=== PATIENT | male | born 1955 | race Caucasian/White ===

== ENCOUNTER 2016-04-24 00:54 | Emergency (ER) | payer OTHER ==
[~2016-04-24] VITALS: Ht 170.2 cm; Wt 78.0 kg
[~2016-04-24 00:54] MED LIST: AMLODIPINE BESY10 MG PO; LISINOPRIL40 MG PO; NAPROSYN500 MG PO
[2016-04-24 01:39] LABS: ADD MIUA? NO; BILIRUBIN NEGATIVE; BLOOD NEGATIVE; COLOR YELLOW ((YELLOW)); GLUCOSE (STRIP) NEGATIVE; KETONES NEGATIVE; LEUKOCYTES NEGATIVE; NITRITE NEGATIVE; PH, URINE 5.5 (5-8); PROTEIN (STRIP) NEGATIVE; SPECIFIC GRAVITY 1.034 (1.000-1.030); UCUL ADDED? NO; UROBILINOGEN 0.2 MG/DL (0.2-1.0)
[2016-04-24 01:47] LABS: HEMATOCRIT 43.4 % (38.0-50.0); MCH 28.5 PG (29.0-34.0); MCHC 33.4 G/DL (30.0-36.0); MCV 85.4 FL (86-99); MEAN PLAT.VOLUME 11.4 uM^3 (9.0-12.4); PLATELET COUNT 271 K/uL (156-360); RBC DIS.WIDTH-CV 13.4 % (11.8-14.6); RBC DIS.WIDTH-SD 41.3 % (39-53); RED BLOOD COUNT 5.08 M/uL (4.00-5.50); WHITE BLOOD COUNT 8.7 K/uL (4.1-10.2)
[2016-04-24 02:00] LABS: CHLORIDE 103 mEq/L (99-109); POTASSIUM 4.2 mEq/L (3.7-5.4); SODIUM 140 mEq/L (136-147)
[2016-04-24 02:02] LABS: GLUCOSE 121 mg/dL (70-99)
[2016-04-24 02:03] LABS: ANION GAP 10 MEQ/L (2-14)
[2016-04-24 02:04] LABS: TOTAL BILIRUBIN 0.4 mg/dL (0.0-1.0)
[2016-04-24 02:05] LABS: ALKALINE PHOSPHATASE 68 IU/L (3-129)
[2016-04-24 02:06] LABS: GFR ESTIMATE (CALCULATED) > 59 mL/min/
[2016-04-24 02:09] LABS: LIPASE 46 U/L (1.0-51.0)
[2016-04-24 02:14] LABS: UREA NITROGEN (BUN) 22 mg/dL (9-23)
[2016-04-24] MEDS ORDERED: KEFLEX500 MG PO (03:11)
[2016-04-24] MEDS ORDERED: NORCO 5/3251 TABLET PO (03:12)
[2016-04-24] MEDS ORDERED: MOTRIN600 MG PO (03:12)
[2016-04-24 03:41] VITALS: BP 174/92
== END 2016-04-24 03:41 | disposition home or self-care (01) ==
LOC: EME 00:54
DX: R59.0 Localized enlarged lymph nodes (principal); L73.9 Follicular disorder, unspecified; I10 Essential (primary) hypertension
CPT/HCPCS: 74176; 80053; 81003; 83690; 85027; 99281; 99283; J1885

== ENCOUNTER → 2016-06-01 | Outpatient (CLI) | payer MEDICARE, OTHER ==
[~2016-06-01] MED LIST changes: +COLACE100 MG PO; +HYDROCODON-ACE1 EAC7 PO; +KEFLEX500 MG PO; +MOTRIN600 MG PO; +NERVE PILL PO; +NORCO 5/3251 TABLET PO; +NORVASC10 MG PO; +TRAZODONE HCL50 MG PO; +TRIFLUOPERAZINE2 MG PO
== END | disposition home or self-care (01) ==
LOC: CDC 08:47
DX: Z01.810 Encounter for preprocedural cardiovascular examination (principal); K40.90 Unilateral inguinal hernia, without obstruction or gangrene, not specified as recurrent
CPT/HCPCS: 93000

== ENCOUNTER 2016-06-20 07:01 | Day surgery (SDC) | payer OTHER ==
[~2016-06-20] VITALS: Ht 170.2 cm; Wt 75.0 kg
[~2016-06-20 07:01] MED LIST changes: -COLACE100 MG PO; -TRIFLUOPERAZINE2 MG PO
[2016-06-20] MEDS ORDERED: TRIFLUOPERAZINE2 MG PO (07:54)
[2016-06-20 08:00] VITALS: BP 136/68
[2016-06-20] MEDS ORDERED: COLACE100 MG PO (12:20)
[2016-06-20] MEDS ORDERED: NORCO 5/3251 TABLET PO (12:20)
[2016-06-20 14:18] VITALS: BP 154/87
[2016-06-20 15:18] VITALS: BP 143/81
== END 2016-06-20 15:25 | disposition home or self-care (01) ==
LOC: SDC 07:01
PROC: 0YUA4JZ Supplement Bilateral Inguinal Region with Synthetic Substitute, Percutaneous Endoscopic Approach (ICD-10-PCS; principal; 2016-06-20)
DX: K40.20 Bilateral inguinal hernia, without obstruction or gangrene, not specified as recurrent (principal); I10 Essential (primary) hypertension; Z87.891 Personal history of nicotine dependence
CPT/HCPCS: C1727; C1781; J0330; J0690; J1170; J1885; J2250; J2405; J3010

== ENCOUNTER 2017-02-22 07:13 | Emergency (ER) | payer OTHER ==
[~2017-02-22] VITALS: Ht 170.2 cm; Wt 75.1 kg
[~2017-02-22 07:13] MED LIST changes: +COLACE100 MG PO; +TRIFLUOPERAZINE2 MG PO
[2017-02-22 07:53] LABS: BASOPHIL COUNT 0.1 K/uL (0-0.1); EOSINOPHIL (%) 1.5 % (0-5); EOSINOPHIL COUNT 0.1 K/uL (0-0.3); HEMATOCRIT 45.3 % (38.0-50.0); IMMATURE GRANULOCYTE (%) 0.3 % (0.0-0.7); INSTRUMENT ABS NEUTROPHIL CT 6.4 K/uL; LYMPHOCYTE COUNT 1.7 K/uL (1.0-2.8); MCH 28.1 PG (29.0-34.0); MCHC 33.3 G/DL (30.0-36.0); MCV 84.2 FL (86-99); MEAN PLAT.VOLUME 10.6 uM^3 (9.0-12.4); MONOCYTE (%) 10.7 % (3-12); NEUTROPHIL (%) 68.6 % (45-76); NEUTROPHIL COUNT 6.4 K/uL (1.8-6.4); PLATELET COUNT 285 K/uL (156-360); RBC DIS.WIDTH-SD 39.8 % (39-53); RED BLOOD COUNT 5.38 M/uL (4.00-5.50); WHITE BLOOD COUNT 9.3 K/uL (4.1-10.2)
[2017-02-22 07:59] LABS: INTER. NORMALIZED RATIO 1.2; PROTHROMBIN TIME 13.5 SEC (10.2-12.9)
[2017-02-22 08:29] LABS: TROP-I INTERPRETATION NEGATIVE; TROPONIN-I 0.02 ng/mL (0.0-0.30)
[2017-02-22 08:42] LABS: CHLORIDE 104 mEq/L (99-109); POTASSIUM 4.5 mEq/L (3.7-5.4); SODIUM 136 mEq/L (136-147)
[2017-02-22 08:44] LABS: GLUCOSE 132 mg/dL (70-99)
[2017-02-22 08:45] LABS: ANION GAP 13 MEQ/L (2-14)
[2017-02-22 08:46] LABS: TOTAL BILIRUBIN 0.9 mg/dL (0.0-1.0)
[2017-02-22 08:47] LABS: ALKALINE PHOSPHATASE 76 IU/L (3-129)
[2017-02-22 08:48] LABS: GFR ESTIMATE (CALCULATED) > 59 mL/min/
[2017-02-22 08:49] LABS: UREA NITROGEN (BUN) 16 mg/dL (9-23)
[2017-02-22 10:29] LABS: ADD MIUA? YES; BILIRUBIN NEGATIVE; BLOOD NEGATIVE; COLOR AMBER ((YELLOW)); GLUCOSE (STRIP) NEGATIVE; KETONES 5; LEUKOCYTES NEGATIVE; NITRITE NEGATIVE; PROTEIN (STRIP) 30; SPECIFIC GRAVITY 1.027 (1.000-1.030); UROBILINOGEN 0.2 MG/DL (0.2-1.0)
[2017-02-22 10:32] LABS: BACTERIA NONE SEEN /HPF; CALCIUM OXALATE CRYSTALS 3+ /HPF; EPITHELIAL CELLS RARE /HPF; HYALINE CASTS 0-5 /LPF; MUCUS 4+ /LPF; RED BLOOD CELLS 0-5 /HPF (0-5); UCUL ADDED? NO; WHITE BLOOD CELLS 0-5 /HPF (0-5)
[2017-02-22 10:51] LABS: TROP-I INTERPRETATION NEGATIVE; TROPONIN-I 0.02 ng/mL (0.0-0.30)
[2017-02-22 11:24] VITALS: BP 137/72
== END 2017-02-22 11:26 | disposition home or self-care (01) ==
LOC: EME 07:13
PROVIDERS: Physician Assistant
DX: F41.0 Panic disorder [episodic paroxysmal anxiety] (principal); R07.89 Other chest pain; I10 Essential (primary) hypertension; R73.03 Prediabetes; Z87.442 Personal history of urinary calculi; Z88.7 Allergy status to serum and vaccine
CPT/HCPCS: 71020; 80053; 81003; 83880; 84484; 85025; 85610; 93005; 99281; 99285; J7120

== ENCOUNTER 2017-02-24 12:33 | Emergency (ER) | payer OTHER ==
[~2017-02-24] VITALS: Ht 170.2 cm; Wt 80.1 kg
[2017-02-24 14:27] LABS: BASOPHIL COUNT 0.1 K/uL (0-0.1); EOSINOPHIL (%) 1.5 % (0-5); EOSINOPHIL COUNT 0.1 K/uL (0-0.3); HEMATOCRIT 39.8 % (38.0-50.0); IMMATURE GRANULOCYTE (%) 0.5 % (0.0-0.7); INSTRUMENT ABS NEUTROPHIL CT 5.5 K/uL; MCH 28.5 PG (29.0-34.0); MCHC 33.4 G/DL (30.0-36.0); MCV 85.4 FL (86-99); MEAN PLAT.VOLUME 10.9 uM^3 (9.0-12.4); MONOCYTE (%) 10.2 % (3-12); MONOCYTE COUNT 0.9 K/uL (0-0.8); NEUTROPHIL COUNT 5.5 K/uL (1.8-6.4); PLATELET COUNT 262 K/uL (156-360); RBC DIS.WIDTH-CV 13.1 % (11.8-14.6); RBC DIS.WIDTH-SD 40.4 % (39-53); RED BLOOD COUNT 4.66 M/uL (4.00-5.50); WHITE BLOOD COUNT 8.6 K/uL (4.1-10.2)
[2017-02-24 14:35] LABS: CHLORIDE 103 mEq/L (99-109); POTASSIUM 3.6 mEq/L (3.7-5.4); SODIUM 140 mEq/L (136-147)
[2017-02-24 14:38] LABS: GLUCOSE 89 mg/dL (70-99)
[2017-02-24 14:39] LABS: ANION GAP 10 MEQ/L (2-14)
[2017-02-24 14:41] LABS: ALKALINE PHOSPHATASE 67 IU/L (3-129); GFR ESTIMATE (CALCULATED) > 59 mL/min/
[2017-02-24 14:42] LABS: TOTAL BILIRUBIN 0.5 mg/dL (0.0-1.0); UREA NITROGEN (BUN) 14 mg/dL (9-23)
[2017-02-24 14:45] LABS: LIPASE 28 U/L (1.0-51.0)
[2017-02-24 14:48] LABS: TROP-I INTERPRETATION NEGATIVE; TROPONIN-I < 0.01 ng/mL (0.0-0.30)
[2017-02-24 15:20] LABS: ADD MIUA? YES; BILIRUBIN NEGATIVE; BLOOD NEGATIVE; COLOR YELLOW ((YELLOW)); GLUCOSE (STRIP) NEGATIVE; KETONES NEGATIVE; LEUKOCYTES NEGATIVE; NITRITE NEGATIVE; PROTEIN (STRIP) NEGATIVE; SPECIFIC GRAVITY 1.019 (1.000-1.030); UROBILINOGEN 0.2 MG/DL (0.2-1.0)
[2017-02-24 15:27] LABS: BACTERIA NONE SEEN /HPF; EPITHELIAL CELLS RARE /HPF; MUCUS TRACE /LPF; RED BLOOD CELLS 0-5 /HPF (0-5); UCUL ADDED? NO; WHITE BLOOD CELLS 0-5 /HPF (0-5)
[2017-02-24] MEDS ORDERED: PROTONIX40 MG PO (17:18)
[2017-02-24 17:31] VITALS: BP 145/79
== END 2017-02-24 17:44 | disposition home or self-care (01) ==
LOC: EME 12:33
PROVIDERS: Emergency Medicine
DX: R10.13 Epigastric pain (principal); Z87.442 Personal history of urinary calculi; Z88.7 Allergy status to serum and vaccine
CPT/HCPCS: 74177; 80053; 81003; 83605; 83690; 84484; 85025; 93005; 99281; 99285

== ENCOUNTER 2017-02-27 16:22 | Emergency (ER) | payer OTHER ==
[~2017-02-27] VITALS: Ht 170.2 cm; Wt 82.3 kg
[~2017-02-27 16:22] MED LIST changes: +PROTONIX40 MG PO
[2017-02-27 17:21] LABS: HEMATOCRIT 40.8 % (38.0-50.0); MCH 28.3 PG (29.0-34.0); MCHC 32.8 G/DL (30.0-36.0); MCV 86.1 FL (86-99); MEAN PLAT.VOLUME 10.6 uM^3 (9.0-12.4); PLATELET COUNT 277 K/uL (156-360); RBC DIS.WIDTH-CV 12.9 % (11.8-14.6); RBC DIS.WIDTH-SD 40.9 % (39-53); RED BLOOD COUNT 4.74 M/uL (4.00-5.50); WHITE BLOOD COUNT 8.3 K/uL (4.1-10.2)
[2017-02-27 17:29] LABS: ADD MIUA? NO; BILIRUBIN NEGATIVE; BLOOD NEGATIVE; COLOR STRAW ((YELLOW)); GLUCOSE (STRIP) NEGATIVE; KETONES NEGATIVE; LEUKOCYTES NEGATIVE; NITRITE NEGATIVE; PROTEIN (STRIP) NEGATIVE; UCUL ADDED? NO; UROBILINOGEN 0.2 MG/DL (0.2-1.0)
[2017-02-27 17:31] LABS: CHLORIDE 103 mEq/L (99-109); SODIUM 137 mEq/L (136-147)
[2017-02-27 17:33] LABS: GLUCOSE 108 mg/dL (70-99)
[2017-02-27 17:35] LABS: ANION GAP 8 MEQ/L (2-14)
[2017-02-27 17:37] LABS: ALKALINE PHOSPHATASE 63 IU/L (3-129); GFR ESTIMATE (CALCULATED) > 59 mL/min/
[2017-02-27 17:38] LABS: TOTAL BILIRUBIN 0.3 mg/dL (0.0-1.0); UREA NITROGEN (BUN) 17 mg/dL (9-23)
[2017-02-27 17:41] LABS: LIPASE 31 U/L (1.0-51.0)
[2017-02-27] MEDS ORDERED: CARAFATE100 MG/ML PO (19:40)
[2017-02-27] MEDS ORDERED: ZANTAC300 MG PO (19:40)
[2017-02-27 19:51] VITALS: BP 186/90
== END 2017-02-27 19:51 | disposition home or self-care (01) ==
LOC: EME 16:22
DX: K44.9 Diaphragmatic hernia without obstruction or gangrene (principal); K21.0 Gastro-esophageal reflux disease with esophagitis; K29.70 Gastritis, unspecified, without bleeding; I10 Essential (primary) hypertension; Z87.442 Personal history of urinary calculi
CPT/HCPCS: 74177; 80053; 81003; 83605; 83690; 85027; 99281; 99285; J7040; S0028

== ENCOUNTER 2017-05-27 13:20 | Emergency (ER) | payer OTHER ==
[~2017-05-27 13:20] MED LIST changes: +CARAFATE100 MG/ML PO; +ZANTAC300 MG PO
== END 2017-05-27 14:50 | disposition left against medical advice (07) ==
LOC: EME 13:20
DX: R53.83 Other fatigue (principal)

== ENCOUNTER 2017-08-08 21:47 | Emergency (ER) | payer OTHER ==
[~2017-08-08] VITALS: Ht 170.2 cm; Wt 82.0 kg
[2017-08-08 21:51] VITALS: BP 156/81
[2017-08-08] MEDS ORDERED: NAPROXEN500 MG PO (22:35)
[2017-08-08] MEDS ORDERED: NORCO 5/3251 TABLET PO (22:35)
== END 2017-08-08 22:46 | disposition home or self-care (01) ==
LOC: RME 21:47 → EME 21:47 → RME 22:46
DX: M54.31 Sciatica, right side (principal); M25.551 Pain in right hip
CPT/HCPCS: 73502; 99281; 99283; J1100